=== PATIENT | male | born 2000 | race Two or more races ===

== ENCOUNTER 2022-01-07 22:21 | Emergency (ER) | payer OTHER ==
[~2022-01-07] VITALS: Ht 180.3 cm; Wt 115.7 kg
[2022-01-07] MEDS ORDERED: ZOLOFT100 MG PO (22:28)
[2022-01-07] MEDS ORDERED: CEPHALEXIN500 MG PO (23:18)
== END 2022-01-08 00:15 | disposition home or self-care (01) ==
LOC: ER 22:21
DX: L03.221 Cellulitis of neck (principal)

== ENCOUNTER 2023-12-22 23:52 | Emergency (ER) | payer OTHER ==
[~2023-12-22] VITALS: Ht 180.3 cm; Wt 117.9 kg
[~2023-12-22 23:52] MED LIST: CEPHALEXIN500 MG PO; ZOLOFT100 MG PO
[2023-12-23] MEDS ORDERED: CEFTRIAXONE SODIUM 1,000 MG VIAL IM STA (02:15)
[2023-12-23] MEDS ORDERED: CIPRO500 MG PO (02:22)
[2023-12-23] MEDS ORDERED: MUPIROCIN1 G1 TOP (02:22)
== END 2023-12-23 02:30 ==
LOC: ER 23:54
DX: L73.8 Other specified follicular disorders (principal); Z91.013 Allergy to seafood
CPT/HCPCS: 96372; 99282; J0696

== ENCOUNTER 2024-03-02 22:58 | Emergency (ER) | payer OTHER ==
[~2024-03-02] VITALS: Ht 180.3 cm; Wt 117.0 kg
[~2024-03-02 22:58] MED LIST changes: +CIPRO500 MG PO; +MUPIROCIN1 G1 TOP
[2024-03-03] MEDS ORDERED: 0.9 % SODIUM CHLORIDE 1,000 ML IV STA (01:16)
[2024-03-03] MEDS ORDERED: ONDANSETRON HCL 2 MG/ML VIAL IV STA (01:17)
[2024-03-03] MEDS ORDERED: HYOSCYAMINE SULFATE 0.125 MG TAB.SUBL SL STA (01:17)
[2024-03-03] MEDS ORDERED: FAMOtidine 10 MG/ML (4ML VIAL) IV PUSH STA (01:17)
[2024-03-03] MEDS ORDERED: HYOSCYAMINE SULFATE 0.125 MG TAB.SUBL ONE (01:23)
[2024-03-03] MEDS ORDERED: FAMOTIDINE/PF 20 MG/2 ML VIAL ONE (01:23)
[2024-03-03] MEDS ORDERED: ONDANSETRON HCL 2 MG/ML VIAL ONE (01:23)
[2024-03-03 01:58] LABS: HEMATOCRIT 45.5 % (39.0-48.0); HEMOGLOBIN 15.6 g/dL (13-16.00); MEAN CELL VOLUME 83.5 fL (80.0-100.00); MEAN CORPUSCULAR HEMOGLOBIN 28.6 pg (27.00-32.0); MEAN CORPUSCULAR HGB CONC 34.3 g/dl (32.0-36.0); PLATELET COUNT 344 K/uL (150-450); RED BLOOD COUNT 5.45 M/uL (4.00-6.00)
[2024-03-03 02:22] LABS: CALCIUM 9.2 mg/dL (8.5-10.1); CREATININE SERUM 1.02 mg/dL (0.70-1.30); GFR 89.73; POTASSIUM 3.69 mEq/L (3.5-5.1)
== END 2024-03-03 04:45 | disposition home or self-care (01) ==
LOC: ER 23:00
DX: K52.9 Noninfective gastroenteritis and colitis, unspecified (principal); Z20.822 Contact with and (suspected) exposure to COVID-19; Z91.013 Allergy to seafood